=== PATIENT | male | born 1955 | race Caucasian/White ===

== ENCOUNTER 2016-10-30 08:51 | Emergency (ER) | payer OTHER ==
[2016-10-30 08:27] LABS: BASOPHIL 0.6 % (0-2); HCT 40.9 % (42.0-52.0); HGB 14.2 g/dl (13.2-18.0); LYMPHOCYTE 31.6 % (15-48); MCH 33.2 pg (25.0-31.0); MCHC 34.7 g/dL (32.0-36.0); MCV 95.6 fL (78.0-100.0); MONOCYTE 13.2 % (0-12); MPV 9.9 fL (6.0-9.5); NEUTROPHIL 51.6 % (41-80); PLT 169 K/uL (150-400); RBC 4.28 M/uL (4.70-6.00); RDW 13.2 % (11.5-14.0); WBC 6.2 K/uL (4.0-10.5)
[2016-10-30 08:36] LABS: INR 1.03 (0.9-1.2); PROTHROMBIN TIME 13.1 SECONDS (11.7-14.0); PTT 25.5 SECONDS (23.2-31.4)
[~2016-10-30 08:51] MED LIST: ASPIRIN CHEWABL81 MG PO; LOPRESSOR25 MG PO; METFORMIN HCL500 MG PO; NEURONTIN400 MG PO; PAXIL20 MG PO; PRINIVIL20 MG PO
[2016-10-30 08:59] LABS: ALBUMIN 3.8 g/dL (3.4-4.8); BILIRUBIN - TOTAL 0.6 mg/dL (0.1-1.0); CKMB 3.77 ng/mL (0.97-4.94); CREATININE 2.4 mg/dL (0.7-1.2); MAGNESIUM 2.23 mg/dL (1.40-2.10); MYOGLOBIN 131 ng/mL (26-65); POTASSIUM 4.1 mmol/L (3.5-5.1); PRO-BNP 337 pg/mL (0-125); TOTAL PROTEIN 5.8 g/dL (6.4-8.3); TROPONIN T < 0.010 ng/mL
[2016-10-30 09:39] LABS: BILIRUBIN NEGATIVE (NEGATIVE); BLOOD NEGATIVE Ery/uL (NEGATIVE); CLARITY CLEAR (CLEAR); COLOR YELLOW (YELLOW); GLUCOSE (U) NORMAL (NORMAL); KETONE (U) NEGATIVE (NEGATIVE); LEUKOCYTES NEGATIVE Leu/uL (NEGATIVE); NITRITE NEGATIVE (NEGATIVE); PROTEIN 1+ mg/dL (NEGATIVE); pH 6.5 (5.0-9.0)
[2016-10-30 09:44] LABS: BACTERIA 1+
[2016-10-30 09:58] LABS: CALCIUM OXALATE CRYSTALS MODERATE
== END 2016-10-30 09:57 | disposition left against medical advice (07) ==
LOC: FER 08:51
PROVIDERS: Emergency Medicine
DX: I25.119 Atherosclerotic heart disease of native coronary artery with unspecified angina pectoris (principal); N17.9 Acute kidney failure, unspecified; I10 Essential (primary) hypertension; E11.9 Type 2 diabetes mellitus without complications; E78.5 Hyperlipidemia, unspecified; F17.290 Nicotine dependence, other tobacco product, uncomplicated; Z79.84 Long term (current) use of oral hypoglycemic drugs; Z79.899 Other long term (current) drug therapy; Z87.442 Personal history of urinary calculi; Z82.49 Family history of ischemic heart disease and other diseases of the circulatory system; Z95.5 Presence of coronary angioplasty implant and graft
CPT/HCPCS: 36415; 71010; 80053; 81001; 82550; 82553; 83735; 83874; 83880; 84484; 85025; 85610; 85730; 93005

== ENCOUNTER 2016-10-30 10:55 | Inpatient (IN) | payer OTHER ==
[2016-10-30 13:57] LABS: BILIRUBIN NEGATIVE (NEGATIVE); BLOOD NEGATIVE Ery/uL (NEGATIVE); CLARITY CLEAR (CLEAR); COLOR YELLOW (YELLOW); GLUCOSE (U) NORMAL (NORMAL); KETONE (U) NEGATIVE (NEGATIVE); LEUKOCYTES NEGATIVE Leu/uL (NEGATIVE); NITRITE NEGATIVE (NEGATIVE); PROTEIN NEGATIVE (NEGATIVE); SPECIFIC GRAVITY <=1.005 (1.001-1.030); pH 6.5 (5.0-9.0)
[2016-10-30 19:02] LABS: URINE CREATININE 57.3 mg/dL (40-278); URINE TOTAL PROTEIN-RANDOM 7.1 mg/dL
[2016-10-31 03:20] LABS: HCT 39.1 % (42.0-52.0); HGB 13.2 g/dl (13.2-18.0); MCH 32.6 pg (25.0-31.0); MCHC 33.8 g/dL (32.0-36.0); MCV 96.5 fL (78.0-100.0); MPV 9.8 fL (6.0-9.5); RBC 4.05 M/uL (4.70-6.00); RDW 13.2 % (11.5-14.0); WBC 4.9 K/uL (4.0-10.5)
[2016-10-31 03:41] LABS: CREATININE 1.3 mg/dL (0.7-1.2); PHOSPHORUS 3.1 mg/dL (2.7-4.5); POTASSIUM 4.4 mmol/L (3.5-5.1)
== END 2016-10-31 14:45 | disposition other institution (70) | DRG 552 ==
LOC: FER 10:55 → FTCU 11:56
PROVIDERS: ADMIT Internal Medicine
DX: M48.02 Spinal stenosis, cervical region (principal); E11.22 Type 2 diabetes mellitus with diabetic chronic kidney disease; E11.40 Type 2 diabetes mellitus with diabetic neuropathy, unspecified; N17.9 Acute kidney failure, unspecified; I95.9 Hypotension, unspecified; N18.3 Chronic kidney disease, stage 3 (moderate); I25.10 Atherosclerotic heart disease of native coronary artery without angina pectoris; E78.5 Hyperlipidemia, unspecified; I12.9 Hypertensive chronic kidney disease with stage 1 through stage 4 chronic kidney disease, or unspecified chronic kidney disease; Z95.1 Presence of aortocoronary bypass graft; F41.9 Anxiety disorder, unspecified; F32.9 Major depressive disorder, single episode, unspecified; F17.290 Nicotine dependence, other tobacco product, uncomplicated
CPT/HCPCS: 36415; 70551; 72141; 76770; 80048; 81003; 82570; 82962; 84100; 84156; 84300; 84484; 93005; 93880; 96372

== ENCOUNTER 2016-11-23 10:10 | Emergency (ER) | payer OTHER ==
[2016-11-23 10:04] LABS: CREATININE 1.4 mg/dL (0.7-1.2); POTASSIUM 6.2 mmol/L (3.5-5.1)
== END 2016-11-23 14:02 | disposition home or self-care (01) ==
LOC: FER 10:10
PROVIDERS: Internal Medicine
DX: E87.5 Hyperkalemia (principal); I13.0 Hypertensive heart and chronic kidney disease with heart failure and stage 1 through stage 4 chronic kidney disease, or unspecified chronic kidney disease; E11.22 Type 2 diabetes mellitus with diabetic chronic kidney disease; N18.9 Chronic kidney disease, unspecified; I50.9 Heart failure, unspecified; F17.290 Nicotine dependence, other tobacco product, uncomplicated; Z79.84 Long term (current) use of oral hypoglycemic drugs; Z95.1 Presence of aortocoronary bypass graft
CPT/HCPCS: 36415; 80048; 84132; 93005; 94640; J0610

== ENCOUNTER 2017-01-07 08:58 | Emergency (ER) | payer OTHER | END 2017-01-07 10:30 | disposition home or self-care (01) | LOC: FER 08:58 | DX: J30.2 Other seasonal allergic rhinitis (principal); I25.2 Old myocardial infarction; E11.9 Type 2 diabetes mellitus without complications; I10 Essential (primary) hypertension; Z79.84 Long term (current) use of oral hypoglycemic drugs; Z79.899 Other long term (current) drug therapy | CPT/HCPCS: 99283 ==

== ENCOUNTER 2021-03-05 14:32 | Emergency (ER) | payer MEDICARE, OTHER ==
[~2021-03-05 14:32] MED LIST changes: +ALDACTONE25 MG PO; +BENADRYL25 MG PO; +COREG 6.25MG6.25 MG PO; +COREG12.5 MG PO; +LIPITOR40 MG PO
[2021-03-05 15:24] LABS: BASOPHIL 0.8 % (0-2); EOSINOPHIL 4.2 % (0-7); HCT 40.1 % (42.0-52.0); HGB 14.2 g/dl (13.2-18.0); LYMPHOCYTE 31.3 % (15-48); MCH 33.8 pg (25.0-31.0); MCHC 35.4 g/dL (32.0-36.0); MCV 95.5 fL (78.0-100.0); MONOCYTE 8.9 % (0-12); NEUTROPHIL 54.5 % (41-80); NRBC 0; PLT 160 K/uL (150-400); WBC 7.9 K/uL (4.0-10.5)
[2021-03-05 15:34] LABS: INR 1.12 (0.9-1.2); PROTHROMBIN TIME 13.8 SECONDS (11.8-13.4); PTT 34.1 SECONDS (24.4-34.7)
[2021-03-05 15:50] LABS: ALBUMIN 3.6 g/dL (3.4-5.0); BILIRUBIN - TOTAL 0.7 mg/dL (0.2-1.0); BUN/CREAT RATIO (CALC) 10.2 RATIO; CREATININE 1.08 mg/dL (0.67-1.17); GLOBULIN (CALCULATION) 3.8 g/dL; POTASSIUM 4.2 mmol/L (3.5-5.1); TOTAL PROTEIN 7.4 g/dL (6.4-8.2)
== END 2021-03-05 17:22 | disposition home or self-care (01) ==
LOC: FER 14:32
PROVIDERS: Emergency Medicine
DX: I87.2 Venous insufficiency (chronic) (peripheral) (principal); I50.9 Heart failure, unspecified; F17.200 Nicotine dependence, unspecified, uncomplicated; Z95.1 Presence of aortocoronary bypass graft
CPT/HCPCS: 36415; 71046; 80053; 83880; 84484; 85025; 85610; 85730; 93005

== ENCOUNTER 2021-04-23 19:57 | Emergency (ER) | payer MEDICARE, OTHER ==
[2021-04-23 20:21] LABS: BASOPHIL 0.7 % (0-2); EOSINOPHIL 4.4 % (0-7); HCT 41.4 % (42.0-52.0); MCH 33.2 pg (25.0-31.0); MCHC 33.8 g/dL (32.0-36.0); MCV 98.1 fL (78.0-100.0); MPV 10.8 fL (6.0-9.5); NEUTROPHIL 51.7 % (41-80); NRBC 0; PLT 141 K/uL (150-400); RBC 4.22 M/uL (4.70-6.00); RDW 12.7 % (11.5-14.0); WBC 8.4 K/uL (4.0-10.5)
[2021-04-23 20:28] LABS: INR 1.18 (0.9-1.2); PROTHROMBIN TIME 14.4 SECONDS (11.8-13.4); PTT 31.3 SECONDS (24.4-34.7)
[2021-04-23 20:38] LABS: ALBUMIN 3.5 g/dL (3.4-5.0); BUN/CREAT RATIO (CALC) 10.4 RATIO; CREATININE 1.06 mg/dL (0.67-1.17); GLOBULIN (CALCULATION) 3.7 g/dL; TOTAL PROTEIN 7.2 g/dL (6.4-8.2)
[2021-04-23 20:41] LABS: PRO-BNP 271 pg/mL (<125)
[2021-04-23] MEDS ORDERED: NORCO 5-325 TA1 EACH PO (23:30)
[2021-04-23] MEDS ORDERED: ROBAXIN750 MG PO (23:30)
== END 2021-04-23 23:50 | disposition home or self-care (01) ==
LOC: FER 19:57
PROVIDERS: Emergency Medicine
DX: M54.5 Low back pain (principal); I25.10 Atherosclerotic heart disease of native coronary artery without angina pectoris; I11.0 Hypertensive heart disease with heart failure; I50.9 Heart failure, unspecified; E11.9 Type 2 diabetes mellitus without complications
CPT/HCPCS: 36415; 71045; 72131; 80053; 83880; 84484; 85025; 85610; 85730; 93005; G0480; J1170; J2405

== ENCOUNTER 2021-05-10 13:05 | Emergency (ER) | payer MEDICARE, OTHER ==
[~2021-05-10 13:05] MED LIST changes: +NORCO 5-325 TA1 EACH PO; +ROBAXIN750 MG PO
[2021-05-10 14:28] LABS: BASOPHIL 0.5 % (0-2); EOSINOPHIL 7.9 % (0-7); HGB 13.7 g/dl (13.2-18.0); LYMPHOCYTE 29.6 % (15-48); MCH 32.7 pg (25.0-31.0); MCHC 32.6 g/dL (32.0-36.0); MCV 100.2 fL (78.0-100.0); MONOCYTE 8.5 % (0-12); MPV 10.7 fL (6.0-9.5); NEUTROPHIL 53.2 % (41-80); NRBC 0; PLT 118 K/uL (150-400); RBC 4.19 M/uL (4.70-6.00); RDW 13.1 % (11.5-14.0); WBC 6.6 K/uL (4.0-10.5)
[2021-05-10 14:54] LABS: BUN/CREAT RATIO (CALC) 9.3 RATIO; CREATININE 1.18 mg/dL (0.67-1.17); POTASSIUM 4.1 mmol/L (3.5-5.1)
== END 2021-05-10 16:35 | disposition home or self-care (01) ==
LOC: FER 13:05
PROVIDERS: Nurse Practitioner Family
DX: M79.661 Pain in right lower leg (principal); M79.662 Pain in left lower leg; R60.0 Localized edema; I10 Essential (primary) hypertension; E11.40 Type 2 diabetes mellitus with diabetic neuropathy, unspecified; F17.220 Nicotine dependence, chewing tobacco, uncomplicated; Z95.0 Presence of cardiac pacemaker
CPT/HCPCS: 36415; 80048; 85025; 93971

== ENCOUNTER 2021-07-13 11:43 | Emergency (ER) | payer OTHER, MEDICARE ==
[2021-07-13 12:42] LABS: BASOPHIL 0.9 % (0-2); EOSINOPHIL 7.1 % (0-7); HCT 43.1 % (42.0-52.0); HGB 14.3 g/dl (13.2-18.0); LYMPHOCYTE 31.8 % (15-48); MCH 32.9 pg (25.0-31.0); MCHC 33.2 g/dL (32.0-36.0); MCV 99.1 fL (78.0-100.0); MONOCYTE 6.4 % (0-12); MPV 10.9 fL (6.0-9.5); NEUTROPHIL 53.6 % (41-80); NRBC 0; PLT 97 K/uL (150-400); RBC 4.35 M/uL (4.70-6.00); WBC 4.4 K/uL (4.0-10.5)
[2021-07-13 12:58] LABS: AMPHETAMINES NEGATIVE (NEGATIVE); BARBITURATES NEGATIVE (NEGATIVE); ECSTASY (MDMA) NEGATIVE (NEGATIVE); MARIJUANA (THC) POSITIVE (NEGATIVE); METHADONE NEGATIVE (NEGATIVE); OPIATES NEGATIVE (NEGATIVE)
[2021-07-13 12:59] LABS: OXYCODONE NEGATIVE (NEGATIVE)
[2021-07-13 13:05] LABS: ALBUMIN 3.1 g/dL (3.4-5.0); ALKALINE PHOSHATASE 168 U/L (46-116); ALT 130 U/L (16-63); AST 104 U/L (15-37); BILIRUBIN - TOTAL 0.6 mg/dL (0.2-1.0); BUN 13 mg/dL (7-18); BUN/CREAT RATIO (CALC) 10.3 RATIO; CHLORIDE 106 mmol/L (98-107); CO2 (BICARBONATE) 28 mmol/L (21-32); CREATININE 1.26 mg/dL (0.67-1.17); GLOBULIN (CALCULATION) 4.5 g/dL; GLUCOSE 207 mg/dL (74-106); POTASSIUM 4.1 mmol/L (3.5-5.1); TOTAL PROTEIN 7.6 g/dL (6.4-8.2)
[2021-07-13 13:06] LABS: ACETAMINOPHEN (TYLENOL) < 2.0 ug/mL (10.0-30.0)
== END 2021-07-13 16:35 | disposition other institution (70) ==
LOC: FER 11:43
PROVIDERS: Emergency Medicine
DX: R45.851 Suicidal ideations (principal); F32.2 Major depressive disorder, single episode, severe without psychotic features; Z59.00 Homelessness unspecified; Z20.822 Contact with and (suspected) exposure to COVID-19
CPT/HCPCS: 36415; 80053; 80305; 85025; 99285; G0480; U0002